=== PATIENT | female | born 1990 | race Caucasian/White ===

== ENCOUNTER 2018-04-12 22:11 | Observation (INO) | payer OTHER ==
[2018-04-12] MEDS ORDERED: Sodium Chloride 0.9% 1,000 ML IV ONE (22:22)
[2018-04-12] MEDS ORDERED: Sodium Chloride 0.9% 10 ML Syringe FLUSH PRN (22:22)
[2018-04-12] MEDS ORDERED: Diphtheria,Pertussis(Acell),Tetanus Vaccine 0.5 ML Syringe IM ONE (22:22)
[2018-04-12] MEDS ORDERED: Sodium Chloride 0.9% 2.5 ML Syringe FLUSH PRN (22:22)
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
[2018-04-12] MEDS ORDERED: Iopamidol 755 MG/ML 500 ML Multipack Bottle IVPUSH STA (23:21)
[2018-04-12 23:41] LABS: CHLORIDE,CL 101 mmol/L (98-107); SODIUM,NA 132 mmol/L (136-145)
[2018-04-13] MEDS ORDERED: Lidocaine 1% with EPINEPHrine 1:100,000 20 ML MDV ONE (02:44)
[2018-04-13] MEDS ORDERED: Lactated Ringers 1,000 ML IV SCH (02:45)
[2018-04-13] MEDS: Acetaminophen/oxyCODONE 325-5 MG Tab PO PRN ×2 (02:52→09:30)
[2018-04-13] MEDS ORDERED: Bacitracin Oint 1 GM U/D Packet TOP ONE (03:16)
--- NOTE | 2018-04-13 03:23 | PCM.OPNOTE ---
- General Post-Op/Procedure Note Date of Surgery/Procedure: 04/13/18 Operative Procedure(s): L eye brow deep lac repair Findings: L eye brow deep lac, repair;[id number] Pre Op Diagnosis: L eye brow lac Post-Op Diagnosis: Same Anesthesia Technique: Local Primary Surgeon: Mann Schmidt Complications: None Condition: Good
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
== END 2018-04-13 12:00 | disposition home or self-care (01) ==
LOC: MW.ED 22:11 → MW.MS 04-13 02:31
PROVIDERS: ADMIT Surgery; ATTEND Surgery
DX: S01.112A Laceration without foreign body of left eyelid and periocular area, initial encounter (principal); E66.01 Morbid (severe) obesity due to excess calories; Z68.43 Body mass index [BMI] 50.0-59.9, adult; V86.69XA Passenger of other special all-terrain or other off-road motor vehicle injured in nontraffic accident, initial encounter
CPT/HCPCS: 12011; 36415; 70450; 70486; 71260; 72125; 73090; 73120; 74177; 80053; 80305; 81001; 84703; 85025; 85610; 90471; 90715; 93005; 96361; 96374; 99285; A9270; G0390; G0480; J7040; J7120; Q9967

== ENCOUNTER 2021-03-17 08:49 | Day surgery (SDC) | payer BC ==
[~2021-03-17 08:49] MED LIST: Albuterol 0.083% 2.5 MG/3 ML Neb Soln NEB PRN; HYDROmorphone 1 MG/ML Syringe IVPUSH PRN; Lactated Ringers 1,000 ML IV SCH; Metoclopramide 10 MG/2 ML SDV IVPUSH PRN; Morphine 2 MG/ML SYRINGE IVPUSH PRN; Naloxone 0.4 MG/ML Syringe IVPUSH PRN; Ondansetron 4 MG/2 ML SDV IVPUSH PRN; Scopolamine 1.5 MG Transdermal Patch ONE; fentaNYL 100 MCG/2 ML SDV IVPUSH PRN
[2021-03-17] MEDS ORDERED: Lidocaine 2% 5 ML SDV ONE (11:10)
[2021-03-17] MEDS ORDERED: fentaNYL 100 MCG/2 ML SDV ONE (11:10)
[2021-03-17] MEDS ORDERED: Ondansetron 4 MG/2 ML SDV ONE (11:10)
[2021-03-17] MEDS ORDERED: Propofol 200 MG/20 ML SDV ONE (11:10)
[2021-03-17] MEDS ORDERED: Midazolam 1 MG/ML 2 ML SDV ONE (11:11)
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
--- NOTE | 2021-03-17 12:13 | PCM.OPNOTE ---
- General Post-Op/Procedure Note Date of Surgery/Procedure: 03/17/21 Operative Procedure(s): 1. Hysteroscopy dilation and curettage. 2. Intrauterine device insertion Findings: Retroverted uterus sounded to 8cm. Hypertrophic endometrium. Pre Op Diagnosis: 1. Abnormal uterine bleeding. 2. Morbid obesity Post-Op Diagnosis: 1. Abnormal uterine bleeding. 2. Morbid obesity Anesthesia Technique: General ET Tube Primary Surgeon: Kirti Barrera Lieutenant Governor: Disha Garcia ([id number]) Pathology: Endometrial curettings Fluid Replacement, Intraop: 300 (crystalloid) Output, Urine Amount: 150 (straight cath prior to procedure) EBL in mLs: 10 Complications: None known Condition: Good Free Text/Narrative:: Dictation #[id number]
--- NOTE | 2021-03-17 12:30 | PCM48HPAN ---
Post Anesthesia Note - EVALUATION WITHIN 48HRS OF ANESTHETIC Vital Signs in Normal Range: Yes Patient Participated in Evaluation: Yes Respiratory Function Stable: Yes Airway Patent: Yes Cardiovascular Function Stable: Yes Hydration Status Stable: Yes Pain Control Satisfactory: Yes Nausea and Vomiting Control Satisfactory: Yes Mental Status Recovered: Yes Vital Signs: Last Vital Signs Temp 98.2 F 03/17/21 12:19 Pulse 96 03/17/21 12:24 Resp 19 03/17/21 12:24 BP 135/82 03/17/21 12:24 Pulse Ox 97 03/17/21 12:24
--- NOTE | 2021-03-17 12:30 | PCM.POSTAN ---
POST ANESTHESIA ASSESSMENT - MENTAL STATUS Mental Status: Alert, Oriented - VITAL SIGNS Vital Signs: Last Vital Signs Temp 98.2 F 03/17/21 12:19 Pulse 96 03/17/21 12:24 Resp 19 03/17/21 12:24 BP 135/82 03/17/21 12:24 Pulse Ox 97 03/17/21 12:24 - RESPIRATORY Respiratory Status: Respiratory Rate WNL, Airway Patent, O2 Saturation Stable - CARDIOVASCULAR CV Status: Pulse Rate WNL, Blood Pressure Stable - GASTROINTESTINAL GI Status: No Symptoms - POST OP HYDRATION Hydration Status: Adequate & Stable
--- NOTE | 2021-03-17 14:47 | OR ---
SURGEON: KIRTI LEDBETTER MD DATE OF PROCEDURE: 03/17/2021 PREOPERATIVE DIAGNOSES: 1. Abnormal uterine bleeding. 2. Morbid obesity. POSTOPERATIVE DIAGNOSES: 1. Abnormal uterine bleeding. 2. Morbid obesity. PROCEDURES: Hysteroscopy, dilation and curettage with intrauterine device insertion. PRIMARY SURGEON: Kirti Ledbetter MD DIRECTOR OF INDIVIDUAL GIVING: Disha Miller MS4 ANESTHESIA: General endotracheal. COMPLICATIONS: None known. ESTIMATED BLOOD LOSS: 10 mL. IV FLUIDS: 300 mL of crystalloid intraoperatively. FLUID DEFICIT: 85 mL. URINE OUTPUT: 150 mL straight cath prior to the procedure. FINDINGS: Retroverted uterus sounded to 8 cm with hypertrophic endometrium. INDICATIONS: The patient is a 30-year-old, 0, morbidly obese female, who was referred to [facility] due to heavy regular vaginal bleeding. She had previously tried oral contraceptives, Provera, and TXA. However, her heavy vaginal bleeding continued. She did have an endometrial biopsy performed in the office, which was negative. DESCRIPTION OF PROCEDURE: The patient was taken to the operating room where general endotracheal anesthesia was introduced. She was then prepped and draped in the dorsal lithotomy position. Bimanual exam was performed and the bladder was then drained. A time-out was held. Open-sided Graves speculum was then inserted into the vagina to visualize the cervix, which was grasped at 12 o'clock with an Allis clamp. The uterus was then sounded to 8 cm and the cervix was then serially dilated to 8 Hegar. The hysteroscope was then inserted into the cervix and the uterus. Hypertrophic endometrium was noted to see the extensive amount of hypertrophic tissue. The right and left ostia were not visualized. The hysteroscope was then removed and sharp curettage was then performed with a medium Francisco curette and specimen sent to Pathology. The intrauterine device application system was then prepared. The intrauterine device was then inserted through the cervix of the uterus until the fundus was reached. The applicator was then retracted 1 cm and the IUD arms were deployed. The applicator was then placed fundally once again and the applicator was then removed. The IUD strings were cut and the Allis clamp was then removed from the cervix. Hemostasis was noted. All remaining instruments were removed from the vagina. Sponge, lap, and needle counts were correct x2, and the patient taken to the recovery room in stable condition. TIMUR HO /[id number]
== END 2021-03-17 13:30 | disposition home or self-care (01) ==
LOC: MW.SDS 08:49
PROVIDERS: ATTEND Obstetrics & Gynecology
DX: N85.01 Benign endometrial hyperplasia (principal); E66.01 Morbid (severe) obesity due to excess calories; G43.909 Migraine, unspecified, not intractable, without status migrainosus; J45.909 Unspecified asthma, uncomplicated; E03.9 Hypothyroidism, unspecified; Z88.8 Allergy status to other drugs, medicaments and biological substances; Z79.899 Other long term (current) drug therapy; Z98.890 Other specified postprocedural states; Z68.43 Body mass index [BMI] 50.0-59.9, adult; Z87.891 Personal history of nicotine dependence
CPT/HCPCS: 36415; 58558; 58579; 84703; 85027; J0131; J0330; J2250; J2405; J2704; J3010; J7120; 00952; 88305